=== PATIENT | female | born 1960 | race Caucasian/White ===

== ENCOUNTER 2016-10-30 21:14 | Emergency (ER) | payer OTHER, SELFPAY | END 2016-10-31 01:50 | disposition home or self-care (01) | LOC: ER1 21:14 | DX: M17.11 Unilateral primary osteoarthritis, right knee (principal); I10 Essential (primary) hypertension; F17.210 Nicotine dependence, cigarettes, uncomplicated; Z88.8 Allergy status to other drugs, medicaments and biological substances; Z88.0 Allergy status to penicillin; Z88.2 Allergy status to sulfonamides; X58.XXXA Exposure to other specified factors, initial encounter; Y92.009 Unspecified place in unspecified non-institutional (private) residence as the place of occurrence of the external cause | CPT/HCPCS: 73564; 96372; 99283; J1885; J2270 ==

== ENCOUNTER → 2020-07-14 | Outpatient (CLI) | payer OTHER ==
[~2020-07-14] MED LIST: AMLODIPINE BESYL5 MG PO; APPLE CIDER VI1 EACH PO; APPLE CIDER VI500 MG PO; ASPIRIN 325MG325 MG NG; ATORVASTATIN CA20 MG PO; BENADRYL 25MG C25 MG PO; BLACK COHOSH540 MG PO; BOTOX200 UNIT INJ; CEFTRIAXONE1 GM INJ; CIPRO500 MG PO; CORTIZONE-1057 GM TP; CYMBALTA60 MG PO; DULOXETINE HCL60 MG PO; ELIQUIS2.5 MG PO; ENDOCET 7.5-321 EACH PO; FIORICET PO; FIORICET TAB1 EA PO; IBUPROFEN600 MG PO; KEFLEX CAP 500500 MG PO; LEVOTHYROXINE125 MCG PO; LEVOTHYROXINE150 MCG PO; LISINOPRIL10 MG PO; LOPRESSOR 25 MG25 MG PO; LOPRESSOR50 MG PO; LOVENOX SY40 MG/0.4 SQ; LOVENOX30 MG/0.3 SQ; LYSINE1000 MG PO; METOPROLOL PO; METOPROLOL TART25 MG PO; METOPROLOL TART50 MG PO; NICOTINE PATCH1 EAC2 TOP; NORCO 5-325 TA1 EACH PO; PEPCID20 MG PO; PERCOCET 10-321 EACH PO; PERCOCET 7.5-31 EACH PO; PREDNISONE 20 M20 MG PO; PRINIVIL10 MG PO; REQUIP XL2 MG PO; ROPINIROLE HCL1 MG PO; SYNTHROID150 MCG PO; ZANTAC150 MG PO; ZESTRIL40 MG PO
[2020-07-14 11:19] LABS: HEMOGLOBIN 13.6 gm/dl (12.3-15.3); RED BLOOD COUNT 4.42 M/UL (4.00-5.10); WHITE BLOOD COUNT 9.4 K/UL (4.5-11.0)
== END ==
LOC: OPSV2 10:30
PROVIDERS: Orthopaedic Surgery
DX: Z01.818 Encounter for other preprocedural examination (principal); S76.112A Strain of left quadriceps muscle, fascia and tendon, initial encounter; I51.7 Cardiomegaly; R00.1 Bradycardia, unspecified; R94.31 Abnormal electrocardiogram [ECG] [EKG]; X58.XXXA Exposure to other specified factors, initial encounter
CPT/HCPCS: 36415; 71046; 80048; 81001; 85027; 85652; 86140; 87077; 87081; 87086; 87186; 93005

== ENCOUNTER 2020-07-29 08:17 | Day surgery (SDC) | payer OTHER ==
[~2020-07-29] VITALS: Ht 170.2 cm; Wt 114.3 kg
[~2020-07-29 08:17] MED LIST changes: -LOVENOX30 MG/0.3 SQ
[2020-07-29] MEDS ORDERED: LISINOPRIL10 MG PO (09:13)
[2020-07-29] MEDS ORDERED: LOVENOX30 MG/0.3 SQ (13:40)
[2020-07-29] MEDS ORDERED: PERCOCET 10-321 EACH PO (13:40)
[2020-07-30 03:21] LABS: HEMOGLOBIN 11.2 gm/dl (12.3-15.3); RED BLOOD COUNT 3.66 M/UL (4.00-5.10); WHITE BLOOD COUNT 16.8 K/UL (4.5-11.0)
== END 2020-07-30 13:54 | disposition home or self-care (01) ==
LOC: OR 08:17 → M/S 15:57 → OR 16:56 → M/S 16:56 → CDU 17:44 → OR 17:48 → M/S 17:48 → OR 07-30 13:54
PROVIDERS: Orthopaedic Surgery
DX: S76.112A Strain of left quadriceps muscle, fascia and tendon, initial encounter (principal); T84.032A Mechanical loosening of internal right knee prosthetic joint, initial encounter; I12.9 Hypertensive chronic kidney disease with stage 1 through stage 4 chronic kidney disease, or unspecified chronic kidney disease; N17.9 Acute kidney failure, unspecified; N18.30 Chronic kidney disease, stage 3 unspecified; G25.81 Restless legs syndrome; E03.9 Hypothyroidism, unspecified; E66.01 Morbid (severe) obesity due to excess calories; M79.7 Fibromyalgia; I25.2 Old myocardial infarction; M81.0 Age-related osteoporosis without current pathological fracture; G35 Multiple sclerosis; K21.9 Gastro-esophageal reflux disease without esophagitis; F17.210 Nicotine dependence, cigarettes, uncomplicated; Z88.0 Allergy status to penicillin; Z88.1 Allergy status to other antibiotic agents; Z88.2 Allergy status to sulfonamides; Z88.8 Allergy status to other drugs, medicaments and biological substances; Z79.899 Other long term (current) drug therapy; X58.XXXA Exposure to other specified factors, initial encounter
CPT/HCPCS: 73560; 80048; 85027; 87070; 87205; 97162; 97165; C1776; J0592; J0690; J1100; J1170; J1650; J1885; J2001; J2250; J2704; J2710; J2795; J3010; J3370; J7070; J7120

== ENCOUNTER 2020-09-03 05:12 | Inpatient (IN) | payer OTHER ==
[~2020-09-03] VITALS: Ht 167.6 cm; Wt 113.4 kg
[~2020-09-03 05:12] MED LIST changes: +LOVENOX30 MG/0.3 SQ
[2020-09-03 05:34] LABS: HEMOGLOBIN 12.3 gm/dl (12.3-15.3); RED BLOOD COUNT 4.04 M/UL (4.00-5.10); WHITE BLOOD COUNT 18.7 K/UL (4.5-11.0)
[2020-09-03 05:59] LABS: BUN/CREATININE RATIO 17 (0-10)
[2020-09-03] MEDS ORDERED: ELIQUIS2.5 MG PO (11:56)
[2020-09-03] MEDS ORDERED: BOTOX200 UNIT INJ (14:47)
[2020-09-04 03:54] LABS: HEMOGLOBIN 10.5 gm/dl (12.3-15.3); RED BLOOD COUNT 3.34 M/UL (4.00-5.10); WHITE BLOOD COUNT 8.8 K/UL (4.5-11.0)
[2020-09-05 04:22] LABS: HEMOGLOBIN 9.9 gm/dl (12.3-15.3); RED BLOOD COUNT 3.14 M/UL (4.00-5.10); WHITE BLOOD COUNT 8.7 K/UL (4.5-11.0)
[2020-09-05] MEDS ORDERED: AMLODIPINE BESYL5 MG PO (09:33)
== END 2020-09-05 13:23 | disposition home or self-care (01) | DRG 189 ==
LOC: ER1 05:12 → CDU 08:27 → PROG CARE 21:53
PROVIDERS: Emergency Medicine; Physician Assistant; ADMIT Internal Medicine
PROC: 5A09457 Assistance with Respiratory Ventilation, 24-96 Consecutive Hours, Continuous Positive Airway Pressure (ICD-10-PCS; principal; 2020-09-03)
PROC: 0T9B70Z Drainage of Bladder with Drainage Device, Via Natural or Artificial Opening (ICD-10-PCS; 2020-09-03)
DX: J81.0 Acute pulmonary edema (principal); J96.01 Acute respiratory failure with hypoxia; J96.02 Acute respiratory failure with hypercapnia; N17.9 Acute kidney failure, unspecified; E87.2 Acidosis; N13.30 Unspecified hydronephrosis; Z68.41 Body mass index [BMI] 40.0-44.9, adult; I16.1 Hypertensive emergency; Z20.822 Contact with and (suspected) exposure to COVID-19; I12.9 Hypertensive chronic kidney disease with stage 1 through stage 4 chronic kidney disease, or unspecified chronic kidney disease; N18.30 Chronic kidney disease, stage 3 unspecified; G25.81 Restless legs syndrome; M79.7 Fibromyalgia; E03.9 Hypothyroidism, unspecified; Z96.651 Presence of right artificial knee joint; F17.210 Nicotine dependence, cigarettes, uncomplicated; J44.9 Chronic obstructive pulmonary disease, unspecified; E66.01 Morbid (severe) obesity due to excess calories; D72.829 Elevated white blood cell count, unspecified; R77.8 Other specified abnormalities of plasma proteins; Z88.0 Allergy status to penicillin; Z88.2 Allergy status to sulfonamides; Z88.8 Allergy status to other drugs, medicaments and biological substances; Z98.890 Other specified postprocedural states; Z83.3 Family history of diabetes mellitus; Z90.49 Acquired absence of other specified parts of digestive tract; Z79.01 Long term (current) use of anticoagulants; Z80.3 Family history of malignant neoplasm of breast
CPT/HCPCS: 36415; 36600; 71045; 73564; 80048; 80053; 80202; 81001; 82550; 82553; 82803; 83605; 83874; 83880; 84484; 85007; 85025; 85027; 85379; 85610; 85652; 85730; 86140; 87040; 93005; 94660; 94760; 96365; 96366; 96375; 96376; 99285; J0692; J1650; J1940; J3370; J7030; J7070; Q9967; U0002

== ENCOUNTER → 2020-12-07 | Outpatient (CLI) | payer OTHER | LOC: HEART 5 10:10 | DX: R06.02 Shortness of breath (principal); Z72.0 Tobacco use | CPT/HCPCS: 94060; 94729 ==

== ENCOUNTER → 2020-12-21 | Outpatient (CLI) | payer OTHER, SELFPAY ==
[~2020-12-21] MED LIST changes: -LEVOTHYROXINE150 MCG PO; +LEVOTHYROXINE175 MCG PO; +OXYCODON-ACETA1 EAC1 PO; +VITAMIN D21250 MCG PO
== END ==
LOC: SLEEP 14:07
DX: G47.33 Obstructive sleep apnea (adult) (pediatric) (principal); G47.61 Periodic limb movement disorder
CPT/HCPCS: 95810

== ENCOUNTER → 2020-12-28 | Outpatient (CLI) | payer OTHER, SELFPAY | LOC: HEART 5 12-16 09:15 | DX: R06.02 Shortness of breath (principal); I25.9 Chronic ischemic heart disease, unspecified | CPT/HCPCS: 78452; A9502; J2785 ==

== ENCOUNTER → 2020-12-30 | Outpatient (CLI) | payer OTHER, SELFPAY ==
[2020-12-30 12:01] LABS: HEMOGLOBIN 14.7 gm/dl (12.3-15.3); RED BLOOD COUNT 5.15 M/UL (4.00-5.10); WHITE BLOOD COUNT 10.8 K/UL (4.5-11.0)
== END ==
LOC: LAB 11:06
PROVIDERS: Internal Medicine Interventional Cardiology
DX: I11.0 Hypertensive heart disease with heart failure (principal); I50.30 Unspecified diastolic (congestive) heart failure; R06.02 Shortness of breath; E03.9 Hypothyroidism, unspecified
CPT/HCPCS: 36415; 80048; 85025; 85610; 85730; 93005

== ENCOUNTER → 2021-01-11 | Outpatient (CLI) | payer OTHER | LOC: EXRD 11:18 | DX: N18.9 Chronic kidney disease, unspecified (principal); N26.1 Atrophy of kidney (terminal) | CPT/HCPCS: 36415; 76775; 80053; 81001; 82043; 82570; 84156 ==

== ENCOUNTER 2021-02-06 17:54 | Day surgery (SDC) | payer OTHER ==
[~2021-02-06] VITALS: Ht 167.6 cm; Wt 111.6 kg
[~2021-02-06 17:54] MED LIST changes: -OXYCODON-ACETA1 EAC1 PO; -VITAMIN D21250 MCG PO
[2021-02-06] MEDS ORDERED: OXYCODON-ACETA1 EAC1 PO (18:43)
[2021-02-06] MEDS ORDERED: VITAMIN D21250 MCG PO (18:44)
== END 2021-02-07 18:11 | disposition home or self-care (01) ==
LOC: MED SURG 4 17:54 → OR 17:54 → UNDOADMIN 17:54 → OR 02-07 18:11 → MED SURG 4 02-07 18:11
PROVIDERS: Internal Medicine
DX: I25.118 Atherosclerotic heart disease of native coronary artery with other forms of angina pectoris (principal); I11.0 Hypertensive heart disease with heart failure; I50.30 Unspecified diastolic (congestive) heart failure; E03.9 Hypothyroidism, unspecified; G35 Multiple sclerosis; G25.81 Restless legs syndrome; F17.210 Nicotine dependence, cigarettes, uncomplicated; E66.9 Obesity, unspecified; Z20.822 Contact with and (suspected) exposure to COVID-19; Z79.899 Other long term (current) drug therapy; Z96.652 Presence of left artificial knee joint; Z90.710 Acquired absence of both cervix and uterus; Z98.890 Other specified postprocedural states
CPT/HCPCS: 36415; 80053; 85610; 85730; 99152; C1769; J1200; J1644; J2250; J3010; J7030; J7040; Q9967; U0002; U0003

== ENCOUNTER 2021-07-10 18:15 | Emergency (ER) | payer MEDICARE ==
[~2021-07-10 18:15] MED LIST changes: +OXYCODON-ACETA1 EAC1 PO; +VITAMIN D21250 MCG PO
== END 2021-07-11 00:20 | disposition home or self-care (01) ==
LOC: ER1 18:15
DX: M23.92 Unspecified internal derangement of left knee (principal); L02.214 Cutaneous abscess of groin; Z96.652 Presence of left artificial knee joint; X50.9XXA Other and unspecified overexertion or strenuous movements or postures, initial encounter
CPT/HCPCS: 10060; 27550; 73564; 99152; 99283; J2270; J2550; J2704

== ENCOUNTER → 2021-09-09 | Outpatient (CLI) | payer MEDICARE | LOC: KOH-I 08-12 09:15 | DX: S76.112D Strain of left quadriceps muscle, fascia and tendon, subsequent encounter (principal); M62.562 Muscle wasting and atrophy, not elsewhere classified, left lower leg | CPT/HCPCS: 73718 ==

== ENCOUNTER 2021-10-03 19:53 | Emergency (ER) | payer MEDICARE ==
[2021-10-03] MEDS ORDERED: PERCOCET 5/325 T1 EA PO (22:51)
[2021-10-05] MEDS ORDERED: NORVASC10 MG PO (12:38)
== END 2021-10-03 23:15 | disposition home or self-care (01) ==
LOC: ER1 19:53
DX: T84.023A Instability of internal left knee prosthesis, initial encounter (principal); I10 Essential (primary) hypertension; E03.9 Hypothyroidism, unspecified; Z90.49 Acquired absence of other specified parts of digestive tract; X58.XXXA Exposure to other specified factors, initial encounter
CPT/HCPCS: 27550; 73562; 96374; 96375; 96376; 99152; 99283; J2270; J2405; J2704

== ENCOUNTER → 2021-10-05 | Outpatient (CLI) | payer MEDICARE ==
[~2021-10-05] MED LIST changes: +NORVASC10 MG PO; +PERCOCET 5/325 T1 EA PO
[2021-10-05 12:04] LABS: HEMOGLOBIN 15.1 gm/dl (12.3-15.3); RED BLOOD COUNT 4.93 M/UL (4.00-5.10); WHITE BLOOD COUNT 10.9 K/UL (4.5-11.0)
== END ==
LOC: OPSV2 10:00
PROVIDERS: Orthopaedic Surgery
DX: Z01.818 Encounter for other preprocedural examination (principal); S76.112A Strain of left quadriceps muscle, fascia and tendon, initial encounter
CPT/HCPCS: 36415; 71046; 80048; 85027; 93005

== ENCOUNTER → 2021-10-13 | Day surgery (SDC) | payer MEDICARE ==
[~2021-10-13] VITALS: Ht 167.6 cm; Wt 108.0 kg
== END | disposition home or self-care (01) ==
LOC: OR 10:39
DX: S76.112A Strain of left quadriceps muscle, fascia and tendon, initial encounter (principal); I12.9 Hypertensive chronic kidney disease with stage 1 through stage 4 chronic kidney disease, or unspecified chronic kidney disease; N18.30 Chronic kidney disease, stage 3 unspecified; I25.10 Atherosclerotic heart disease of native coronary artery without angina pectoris; J44.9 Chronic obstructive pulmonary disease, unspecified; G47.30 Sleep apnea, unspecified; K21.9 Gastro-esophageal reflux disease without esophagitis; K44.9 Diaphragmatic hernia without obstruction or gangrene; M19.90 Unspecified osteoarthritis, unspecified site; E03.9 Hypothyroidism, unspecified; F17.210 Nicotine dependence, cigarettes, uncomplicated; G25.81 Restless legs syndrome; Z53.8 Procedure and treatment not carried out for other reasons; Z20.822 Contact with and (suspected) exposure to COVID-19; Z88.0 Allergy status to penicillin; Z88.1 Allergy status to other antibiotic agents; Z88.2 Allergy status to sulfonamides; Z88.6 Allergy status to analgesic agent; Z88.8 Allergy status to other drugs, medicaments and biological substances; Z91.09 Other allergy status, other than to drugs and biological substances; Z79.890 Hormone replacement therapy; Z79.899 Other long term (current) drug therapy; Z86.73 Personal history of transient ischemic attack (TIA), and cerebral infarction without residual deficits; Z95.5 Presence of coronary angioplasty implant and graft; X58.XXXA Exposure to other specified factors, initial encounter
CPT/HCPCS: J0171; J0690; J1100; J2795

== ENCOUNTER → 2021-11-18 | Outpatient (CLI) | payer MEDICARE | LOC: KOH-I 15:00 | DX: F17.210 Nicotine dependence, cigarettes, uncomplicated (principal); R91.1 Solitary pulmonary nodule | CPT/HCPCS: 71271 ==

== ENCOUNTER → 2021-11-29 | Outpatient (CLI) | payer MEDICARE ==
[2021-11-29 14:19] LABS: RED BLOOD COUNT 5.22 M/UL (4.00-5.10); WHITE BLOOD COUNT 11.4 K/UL (4.5-11.0)
== END ==
LOC: LAB 13:18
PROVIDERS: Internal Medicine
DX: Z51.81 Encounter for therapeutic drug level monitoring (principal); R53.83 Other fatigue; E78.5 Hyperlipidemia, unspecified; I10 Essential (primary) hypertension; E03.9 Hypothyroidism, unspecified; R73.01 Impaired fasting glucose; E55.9 Vitamin D deficiency, unspecified; Z79.899 Other long term (current) drug therapy; F17.200 Nicotine dependence, unspecified, uncomplicated
CPT/HCPCS: 36415; 80053; 80061; 82607; 82746; 83036; 84439; 84443; 85025; 87077; 87086; 87186

== ENCOUNTER → 2021-12-19 | Outpatient (CLI) | payer MEDICARE ==
[~2021-12-19] MED LIST changes: +ASPIRIN EC81 MG PO; +CYCLOBENZAPRINE10 MG PO; +ROXICODONE15 MG PO; +ZOFRAN 4 MG TAB4 MG PO
[2021-12-19 11:40] LABS: HEMOGLOBIN 16.1 gm/dl (12.3-15.3); RED BLOOD COUNT 5.22 M/UL (4.00-5.10); WHITE BLOOD COUNT 11.5 K/UL (4.5-11.0)
== END ==
LOC: OPSV2 10:00
PROVIDERS: Orthopaedic Surgery
DX: Z01.812 Encounter for preprocedural laboratory examination (principal)
CPT/HCPCS: 36415; 80048; 85027

== ENCOUNTER → 2021-12-22 | Day surgery (SDC) | payer MEDICARE | END | disposition home or self-care (01) | LOC: OR 08:25 | PROVIDERS: Orthopaedic Surgery | PROC: 3E0T3BZ Introduction of Anesthetic Agent into Peripheral Nerves and Plexi, Percutaneous Approach (ICD-10-PCS; 2021-12-22) | PROC: 0LQM0ZZ Repair Left Upper Leg Tendon, Open Approach (ICD-10-PCS; principal; 2021-12-22 09:45) | DX: S76.112A Strain of left quadriceps muscle, fascia and tendon, initial encounter (principal); I25.10 Atherosclerotic heart disease of native coronary artery without angina pectoris; G25.81 Restless legs syndrome; J44.9 Chronic obstructive pulmonary disease, unspecified; K44.9 Diaphragmatic hernia without obstruction or gangrene; E03.9 Hypothyroidism, unspecified; K21.9 Gastro-esophageal reflux disease without esophagitis; I12.9 Hypertensive chronic kidney disease with stage 1 through stage 4 chronic kidney disease, or unspecified chronic kidney disease; N18.30 Chronic kidney disease, stage 3 unspecified; Z86.16 Personal history of COVID-19; G47.30 Sleep apnea, unspecified; G35 Multiple sclerosis; E66.9 Obesity, unspecified; F17.210 Nicotine dependence, cigarettes, uncomplicated; X58.XXXA Exposure to other specified factors, initial encounter; Z79.890 Hormone replacement therapy; Z79.899 Other long term (current) drug therapy; Z88.0 Allergy status to penicillin; Z88.1 Allergy status to other antibiotic agents; Z88.2 Allergy status to sulfonamides; Z88.6 Allergy status to analgesic agent; Z91.048 Other nonmedicinal substance allergy status | CPT/HCPCS: C1781; J0171; J0690; J1100; J1170; J2250; J2370; J2405; J2704; J2795; J3010 ==